=== PATIENT | female | born 1990 ===

== ENCOUNTER 2017-01-24 14:05 | Emergency (ER) | payer OTHER ==
--- NOTE | 2017-01-24 14:34 | ED NURSING NOTES ---
Clinical Report - Nurses [facility] [address] [place] [address] 01/24/2017 14:05 Patient: CÉSAR ENGLISH TRIAGE Triage time 14:Jan 24 2017. Acuity: LEVEL 3. Chief Complaint: (HERION WITHDRAWL). Alert. No acute distress. DENNIS COMA SCORE: [place] Coma Scale: 15- eyes open spontaneously (4); best verbal response- oriented x 4 (5); best motor response- obeys commands (6). --14:11 Raquel Woodward R.N. 14:05 01/24/17. BP: 140/79. HR: 114. RR: 16. O2 saturation: 98%. Temp: 98.6 F. Pain level now: 04/13. --14:11 Raquel Woodward R.N. Weight: 45.3 kg stated. Height/Length: 59 inches Per Patient. BMI: 20.2. --14:10 Raquel Woodward R.N. Medications None. --14:06 Raquel Woodward R.N. Allergies None. --16:28 Raquel Woodward R.N. History Historian: patient. Arrived in police custody and accompanied by police. This started today. Onset. (about 10 AM). 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 PAST MEDICAL HX: Immunizations: status is unknown. Last normal menstrual period- MID December. SOCIAL HX: Current every day heavy tobacco smoker (cigarette)- less than 1 pack per day. History of heavy IV drug use: heroin, methamphetamines. (about 2 days ago). No alcohol use. No infectious disease exposure. SELF HARM ASSESSMENT: A self harm assessment was performed. The patient answered "no" to the question "Do you have thoughts of harming or killing yourself?". FALL RISK ASSESSMENT: Fall risk assessment completed. No fall risk identified. NUTRITIONAL RISK ASSESSMENT: The nutritional risk assessment revealed no deficiencies. FUNCTIONAL ASSESSMENT: Functional assessment: no impairments noted. LEARNING NEEDS ASSESSMENT: The learning needs assessment revealed no barriers. ABUSE ASSESSMENT: Abuse assessment: The patient was asked "Do you feel safe in your home?". SKIN INTEGRITY ASSESSMENT: Skin integrity risk assessment completed. No skin integrity risk identified. --14:11 Raqule Woodward R.N. PAST MEDICAL HX: ( PT STATES THAT SHE ALSO BLACKED OUT AND HIT HER HEAD THIS MORNING AT 10 AM AFTER GETTING UP AND HAVING SOME DIZZINESS.). --14:14 Raquel Woodward R.N. PROBLEMS: Cellulitis. Substance Abuse. Abscess. Chronic Back Pain. Dental Caries. Back Pain. Tetanus Status. STD - Sexually Transmitted Disease. Abnormal Test. . Care. LNMP - Last Normal Menstrual Period. . --14:07 Raquel Woodward R.N. Interventions ID band on patient. To room. --14:11 Raquel Woodward R.N. PHYSICAL ASSESSMENT GENERAL / NEURO / PSYCH: Alert. Oriented X 4. Appears in no acute distress. HEENT: No facial asymmetry noted. Mucous membranes are pink. RESPIRATORY: Respirations not labored. CVS: Capillary refill less than 2 seconds. Pulses within normal limits. GI / : Abdomen soft and nontender. SKIN: Skin is warm and dry. --14:12 Raquel Woodward R.N. NURSING PROGRESS NOTES Head of bed elevated. Patient identifiers checked. Side rails up x 1. Bed placed in lowest position. Brakes of bed on. --14:13 Raquel Woodward R.N. DISPOSITION / DISCHARGE 14:57 01/24/17. Departure time: 1454. Condition at departure: unchanged and stable. No learning barriers present. Discharge instructions provided and reviewed with the patient (Milton MOE). Patient verbalized understanding. Written instructions provided in Tuvaluan. The patient was discharged by the physician data assistant. She was discharged to police department facility and accompanied by a police escort. --14:57 Lavell English R.N. Locked/Released at 01/24/2017 16:28 by Raquel Woodward R.N.
--- NOTE | 2017-01-24 14:34 | ED CLINICAL REPORT ---
Clinical Report - Physicians/Mid Levels [facility] [address] [place] [address] 01/24/2017 14:05 Patient: CÉSAR ENGLISH Time Seen: 1410; initial patient contact. Arrived- Police present. Historian- patient. HISTORY OF PRESENT ILLNESS Chief Complaint: CHEST DISCOMFORT. It is described as sharp and "pain" and it is described as located in the central chest area. No radiation. At its maximum, severity described as 3 / 10. When seen in the E.D., it was almost gone. Modifying factors- worsened by movement. Relieved by rest. This started today pt states she is withdrawing from heroin and is complaining of sternal chest pain and states it hurts to put pressure on it as well. last used heroin 2 days ago. no nausea, no vomiting, no abdominal pain, no shakiness... and is still present but is better now. No nausea, vomiting, difficulty breathing or diaphoresis. Similar symptoms previously: Recent medical care: Not recently seen/assessed. REVIEW OF SYSTEMS No fever, chills, cough, pedal edema or calf pain. All systems otherwise negative, except as recorded above. PAST HISTORY See nurses notes. Problems: Cellulitis. Substance Abuse. Abscess. Chronic Back Pain. Dental Caries. Back Pain. Tetanus Status. STD - Sexually Transmitted Disease. Care. LNMP - Last Normal Menstrual Period. Medications: None. Allergies: None. SOCIAL HISTORY Alcohol use. History of heavy IV drug use 2: heroin. Recently used drugs days ago. FAMILY HISTORY Negative. ADDITIONAL NOTES The nursing notes have been reviewed with agreement regarding the chief complaint, HPI, ROS, PMH and patient medications and allergies. PHYSICAL EXAM Vital Signs: 01/24/2017 14:05 BP: 140/79. HR: 114. RR: 16. O2 saturation: 98%. Temp: 98.6 F. Pain level now: 710. Have been reviewed. Appearance: Alert. Oriented X3. No acute distress. Does not appear to be anxious or in pain. Eyes: Pupils equal, round and reactive to light. Neck: Normal inspection. Neck supple. CVS: Normal heart rate and rhythm. Heart sounds normal. Pulses normal. Respiratory: No respiratory distress. Mild upper sternal tenderness. The tenderness is well-localized. Breath sounds normal. Chest nontender. No splinting, decreased air movement, rales, rhonchi or wheezes. Skin: Skin warm and dry. Normal skin color. No rash. Normal skin turgor. Extremities: No lower extremity edema. LABS, X-RAYS, AND EKG EKG: Normal EKG. The study has been interpreted contemporaneously by me and the diesel dinkey operator. The EKG appears to be a good tracing. I agree with and confirm the computer reading of the EKG. PROGRESS AND PROCEDURES Course of Care: Patient is stable. Physical exam findings are improved. Symptoms better. CLINICAL IMPRESSION Atypical chest pain .12 lead EKG performed. Anxiety reaction. No hyperventilation. INSTRUCTIONS No restrictions to activity. No dietary restrictions. Do not smoke. No alcohol. (CLEAR TO BOOK). Understanding of the discharge instructions verbalized by patient. (Electronically signed by Catherine De La Torre PA-C 01/24/2017 19:44)
--- NOTE | 2017-01-24 14:34 | ED CLINICAL REPORT ---
Clinical Report - Physicians/Mid Levels [facility] [address] [place] [address] 01/24/2017 14:05 Patient: CÉSAR ENGLISH Time Seen: 1410; initial patient contact. Arrived- Police present. Historian- patient. HISTORY OF PRESENT ILLNESS Chief Complaint: CHEST DISCOMFORT. It is described as sharp and "pain" and it is described as located in the central chest area. No radiation. At its maximum, severity described as 3 / 10. When seen in the E.D., it was almost gone. Modifying factors- worsened by movement. Relieved by rest. This started today pt states she is withdrawing from heroin and is complaining of sternal chest pain and states it hurts to put pressure on it as well. last used heroin 2 days ago. no nausea, no vomiting, no abdominal pain, no shakiness... and is still present but is better now. No nausea, vomiting, difficulty breathing or diaphoresis. Similar symptoms previously: Recent medical care: Not recently seen/assessed. REVIEW OF SYSTEMS No fever, chills, cough, pedal edema or calf pain. All systems otherwise negative, except as recorded above. PAST HISTORY See nurses notes. Problems: Cellulitis. Substance Abuse. Abscess. Chronic Back Pain. Dental Caries. Back Pain. Tetanus Status. STD - Sexually Transmitted Disease. Care. LNMP - Last Normal Menstrual Period. Medications: None. Allergies: None. SOCIAL HISTORY Alcohol use. History of heavy IV drug use 2: heroin. Recently used drugs days ago. FAMILY HISTORY Negative. ADDITIONAL NOTES The nursing notes have been reviewed with agreement regarding the chief complaint, HPI, ROS, PMH and patient medications and allergies. PHYSICAL EXAM Vital Signs: 01/24/2017 14:05 BP: 140/79. HR: 114. RR: 16. O2 saturation: 98%. Temp: 98.6 F. Pain level now: 710. Have been reviewed. Appearance: Alert. Oriented X3. No acute distress. Does not appear to be anxious or in pain. Eyes: Pupils equal, round and reactive to light. Neck: Normal inspection. Neck supple. CVS: Normal heart rate and rhythm. Heart sounds normal. Pulses normal. Respiratory: No respiratory distress. Mild upper sternal tenderness. The tenderness is well-localized. Breath sounds normal. Chest nontender. No splinting, decreased air movement, rales, rhonchi or wheezes. Skin: Skin warm and dry. Normal skin color. No rash. Normal skin turgor. Extremities: No lower extremity edema. LABS, X-RAYS, AND EKG EKG: Normal EKG. The study has been interpreted contemporaneously by me and the services clerk. The EKG appears to be a good tracing. I agree with and confirm the computer reading of the EKG. PROGRESS AND PROCEDURES Course of Care: Patient is stable. Physical exam findings are improved. Symptoms better. CLINICAL IMPRESSION Atypical chest pain .12 lead EKG performed. Anxiety reaction. No hyperventilation. INSTRUCTIONS No restrictions to activity. No dietary restrictions. Do not smoke. No alcohol. (CLEAR TO BOOK). Understanding of the discharge instructions verbalized by patient. (Electronically signed by Catherine De La Torre PA-C 01/24/2017 19:44)
--- NOTE | 2017-01-24 14:34 | ED NURSING NOTES ---
Clinical Report - Nurses [facility] [address] [place] [address] 01/24/2017 14:05 Patient: CÉSAR ENGLISH TRIAGE Triage time 14:Jan 24 2017. Acuity: LEVEL 3. Chief Complaint: (HERION WITHDRAWL). Alert. No acute distress. DENNIS COMA SCORE: [place] Coma Scale: 15- eyes open spontaneously (4); best verbal response- oriented x 4 (5); best motor response- obeys commands (6). --14:11 Raquel Woodward R.N. 14:05 01/24/17. BP: 140/79. HR: 114. RR: 16. O2 saturation: 98%. Temp: 98.6 F. Pain level now: 04/13. --14:11 Raquel Woodward R.N. Weight: 45.3 kg stated. Height/Length: 59 inches Per Patient. BMI: 20.2. --14:10 Raquel Woodward R.N. Medications None. --14:06 Raquel Woodward R.N. Allergies None. --16:28 Raquel Woodward R.N. History Historian: patient. Arrived in police custody and accompanied by police. This started today. Onset. (about 10 AM). 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 PAST MEDICAL HX: Immunizations: status is unknown. Last normal menstrual period- MID December. SOCIAL HX: Current every day heavy tobacco smoker (cigarette)- less than 1 pack per day. History of heavy IV drug use: heroin, methamphetamines. (about 2 days ago). No alcohol use. No infectious disease exposure. SELF HARM ASSESSMENT: A self harm assessment was performed. The patient answered "no" to the question "Do you have thoughts of harming or killing yourself?". FALL RISK ASSESSMENT: Fall risk assessment completed. No fall risk identified. NUTRITIONAL RISK ASSESSMENT: The nutritional risk assessment revealed no deficiencies. FUNCTIONAL ASSESSMENT: Functional assessment: no impairments noted. LEARNING NEEDS ASSESSMENT: The learning needs assessment revealed no barriers. ABUSE ASSESSMENT: Abuse assessment: The patient was asked "Do you feel safe in your home?". SKIN INTEGRITY ASSESSMENT: Skin integrity risk assessment completed. No skin integrity risk identified. --14:11 Raquel Woodward R.N. PAST MEDICAL HX: ( PT STATES THAT SHE ALSO BLACKED OUT AND HIT HER HEAD THIS MORNING AT 10 AM AFTER GETTING UP AND HAVING SOME DIZZINESS.). --14:14 Raquel Woodward R.N. PROBLEMS: Cellulitis. Substance Abuse. Abscess. Chronic Back Pain. Dental Caries. Back Pain. Tetanus Status. STD - Sexually Transmitted Disease. Abnormal Test. . Care. LNMP - Last Normal Menstrual Period. . --14:07 Raquel Woodward R.N. Interventions ID band on patient. To room. --14:11 Raquel Woodward R.N. PHYSICAL ASSESSMENT GENERAL / NEURO / PSYCH: Alert. Oriented X 4. Appears in no acute distress. HEENT: No facial asymmetry noted. Mucous membranes are pink. RESPIRATORY: Respirations not labored. CVS: Capillary refill less than 2 seconds. Pulses within normal limits. GI / : Abdomen soft and nontender. SKIN: Skin is warm and dry. --14:12 Raquel Woodward R.N. NURSING PROGRESS NOTES Head of bed elevated. Patient identifiers checked. Side rails up x 1. Bed placed in lowest position. Brakes of bed on. --14:13 Raquel Woodward R.N. DISPOSITION / DISCHARGE 14:57 01/24/17. Departure time: 1454. Condition at departure: unchanged and stable. No learning barriers present. Discharge instructions provided and reviewed with the patient (Milton MOE). Patient verbalized understanding. Written instructions provided in [place]an. The patient was discharged by the physician legislative assistant. She was discharged to police department facility and accompanied by a police escort. --14:57 Lavell English R.N. Locked/Released at 01/24/2017 16:28 by Raquel Woodward R.N.
--- NOTE | 2017-01-24 19:44 | ED MED RECONCILIATION SUMMARY ---
Patient: CÉSAR ENGLISH Medication Reconciliation Report [facility] VisitID: [id number] [address] [place] [address] 26y, F Registration Date/Time: 01/24/2017 Weight: 45.3 kg Height/Length: 59 in. BMI: 20.2 ALLERGIES: None The patient's Home Medications are listed below: NONE. The source(s) of the original Home Medication information: Not obtained. The following Medications were given to the patient in the Emergency Department: None. The following Medications were prescribed to the patient: None.
--- NOTE | 2017-01-24 19:44 | ED MED RECONCILIATION SUMMARY ---
Patient: CÉSAR ENGLISH Medication Reconciliation Report [facility] VisitID: [id number] [address] [place] [address] 26y, F Registration Date/Time: 01/24/2017 Weight: 45.3 kg Height/Length: 59 in. BMI: 20.2 ALLERGIES: None The patient's Home Medications are listed below: NONE. The source(s) of the original Home Medication information: Not obtained. The following Medications were given to the patient in the Emergency Department: None. The following Medications were prescribed to the patient: None.
--- NOTE | 2017-01-24 19:44 | ED MAR SUMMARY ---
..... Medication Administration Record Located Within [facility] [address] [place] [id number] Patient: CÉSAR ENGLISH Visit ID: [id number] 26y, F Weight: 45.3 kg Height/Length: 59 in BMI: 20.2 ALLERGIES: None
--- NOTE | 2017-01-24 19:44 | ED MAR SUMMARY ---
..... Medication Administration Record [facility] [address] [place], [place] [id number] Patient: CÉSAR ENGLISH Visit ID: [id number] 26y, F Weight: 45.3 kg Height/Length: 59 in BMI: 20.2 ALLERGIES: None
--- NOTE | 2017-01-24 19:44 | ED DISCHARGE INSTRUCTIONS ---
Patient: CÉSAR ENGLISH General Instructions [facility] VisitID: [id number] [address] [place] [address] 26y, F Registration Date/Time: 01/24/2017 Atypical chest pain .12 lead EKG performed. Anxiety reaction. No hyperventilation. INSTRUCTIONS No restrictions to activity. No dietary restrictions. Do not smoke. No alcohol. (CLEAR TO BOOK). Understanding of the discharge instructions verbalized by patient. No restrictions to activity. (Electronically signed by Catherine De La Torre PA-C 01/24/2017 19:44)
--- NOTE | 2017-01-24 19:44 | ED DISCHARGE INSTRUCTIONS ---
Patient: CÉSAR ENGLISH General Instructions [facility] VisitID: [id number] [address] [place] [address] 26y, F Registration Date/Time: 01/24/2017 Atypical chest pain .12 lead EKG performed. Anxiety reaction. No hyperventilation. INSTRUCTIONS No restrictions to activity. No dietary restrictions. Do not smoke. No alcohol. (CLEAR TO BOOK). Understanding of the discharge instructions verbalized by patient. No restrictions to activity. (Electronically signed by Catherine De La Torre PA-C 01/24/2017 19:44)
== END 2017-01-24 14:54 ==
LOC: ED SRH 14:05
DX: R07.89 Other chest pain (principal); F41.1 Generalized anxiety disorder